=== PATIENT | female | born 1980 | race Caucasian/White ===

== ENCOUNTER 2016-12-23 19:10 | Emergency (ER) | payer OTHER ==
--- NOTE | ~2016-12-23 | CR63 ---
[facility]. [facility] A Service of [facility] & [facility] RADIOLOGY TEXT RESULTS PATIENT: HEATH DEMARCO LOCATION: SED : 84 UNIT #: [id number] AGE: [address]: Marnie France APRN SEX: F ORDER DR: [id number] [address] [address] [id number] MR#: [id number] Acc #: [id number] NAME: HEATH DEMARCO : 1980 SEX: F STUDY DATE/TIME: 12/23/2016 20:18 UNIT: SED ROOM: STUDY DESCRIPTION: CR Chest 2 View Attending Physician: Marnie France A.P.R.N. Ordering Physician: Marnie France A.P.R.N. MEDICAL IMAGING REPORT This report is preliminary unless electronic signature is present. EXAM PA and lateral chest HISTORY Cough, sore throat since yesterday. FINDINGS PA and lateral examination of the chest upright shows a good expansion of the parenchyma with a normal distribution of the pulmonary vascularity. There is no indication of congestion, effusion, infiltrate, tumor, or nodular density. The pleural reflections and diaphragmatic contours are normal. The cardiac silhouette and mediastinal anatomy is within normal limits. IMPRESSION Normal chest. Dictated by... Dale Martin M.D. THIS IS AN ELECTRONICALLY VERIFIED REPORT Dale Martin M.D. at 12/23/2016 11:31 PM DFL/hugo TD: 12/23/2016 22:21 JOB #: [id number] MEDICAL IMAGING REPORT Page 1 of 1
[~2016-12-23 19:10] MED LIST: ALBUTEROL20 ml INH; ATARAX PO; CELEXA PO; DARVOCET-N 1001 TAB PO; DICYCLOMINE HCL20 MG PO; FAMOTIDINE PO; NEURONTIN PO; NO MEDICATIONS; OMNICEF300 MG PO; PHENERGAN PR; PHENERGAN25 M1 PO; PHENERGAN25 MG PO; PROMETHAZINE D118 ML PO; TESSALON PERLE100 M1 PO; TYLENOL #3 PO; ULTRAM PO; VOLTAREN75 MG PO; Z-CLINZ 10 PAC1 EA PO; ZITHROMAX PO
[2016-12-23 20:34] LABS: INFLUENZA A NEG (NEG); INFLUENZA B NEG (NEG)
== END 2016-12-23 21:16 | disposition home or self-care (01) ==
LOC: SED 19:10
PROVIDERS: Nurse Practitioner
DX: J20.9 Acute bronchitis, unspecified (principal); H92.03 Otalgia, bilateral; R11.2 Nausea with vomiting, unspecified; F17.210 Nicotine dependence, cigarettes, uncomplicated; Z88.0 Allergy status to penicillin; Z88.1 Allergy status to other antibiotic agents; Z88.5 Allergy status to narcotic agent
CPT/HCPCS: 71020; 87651; 87804; 99283